=== PATIENT | female | born 1965 | race Caucasian/White ===

== ENCOUNTER → 2019-07-09 | Outpatient (CLI) | payer BC ==
[2015-01-26 11:50] VITALS: BP 112/71
[~2019-07-09] MED LIST: BLAC160C PO; CONTRAST GIVEN MC PRN; CRAN500C6 PO; DIAZ10TA PO; ESTR1TAB15 PO; MELA3TAB4 PO; ZOLP10TA PO; [UNRECOGNIZED DRUG - OTHER] PO
[2019-07-09] MEDS: IOHEXOL 300 MG/ML 75 ML VIAL. IV ONE (13:24)
--- NOTE | 2019-07-09 13:32 | RAD ---
EXAM: Head CT without and with contrast. HISTORY: Severe headache. Visual disturbance. TECHNIQUE: Computed tomographic images of the head were obtained without and with contrast. *One or more of the following individualized dose reduction techniques were utilized for this examination: 1. Automated exposure control. 2. Adjustment of the mA and/or kV according to patient size. 3. Use of iterative reconstruction technique. COMPARISON: 01/26/2015. FINDINGS: There is no acute or subacute extra-axial or intraparenchymal hemorrhage. There is no mass effect or midline shift. There is no hydrocephalus. There is mild developmental asymmetry in the size of the left greater than right frontal horn. The dumont-white matter differentiation pattern is intact. No enhancing lesion is seen. The visualized portions of the orbits, paranasal sinuses and mastoid air cells are unremarkable. No suspicious calvarial lesion is seen. IMPRESSION: No acute intracranial findings. Electronically signed by: Anitha Portillo MD (07/09/2019 1:30 PM) [id number]
[2019-07-09 14:03] LABS: CALCIUM 8.8 mg/dL (8.5-10.1); CREATININE 0.7 mg/dL (0.6-1.0); GFR 87.9; POTASSIUM 3.5 mmol/L (3.5-5.1)
[2019-07-09 14:07] LABS: BASO % 1 % (0-3); EOS # 0.1 x10^3/uL (0.0-0.7); EOS % 2 % (0-3); HEMOGLOBIN 13.8 g/dL (12.0-15.5); LYMPH # 2.4 x10^3/uL (1.0-4.8); LYMPH % 45 % (24-48); MEAN CORPUSCULAR HEMOGLOBIN 29 pg (25-35); MEAN CORPUSCULAR HGB CONC 33 g/dL (31-37); MEAN CORPUSCULAR VOLUME 89 fL (79-100); MONO # 0.3 x10^3/uL (0.0-1.1); MONO % 6 % (0-9); NEUT # 2.5 x10^3uL (1.8-7.7); NEUT % 47 % (31-73); PLATELET COUNT 229 x10^3/uL (140-400); RED BLOOD COUNT 4.71 x10^6/uL (3.50-5.40); RED CELL DISTRIBUTION WIDTH 13.6 % (11.5-14.5); WHITE BLOOD COUNT 5.4 x10^3/uL (4.0-11.0)
[2019-07-09 15:14] LABS: SEDIMENTATION RATE 4 (0-25)
== END | disposition home or self-care (01) ==
LOC: CT 12:30
PROVIDERS: ATTEND Family Medicine
DX: R51 Headache (principal); H53.8 Other visual disturbances; R11.0 Nausea
CPT/HCPCS: 36415; 70470; 80048; 85025; 85651; Q9967

== ENCOUNTER 2019-11-15 13:43 | Inpatient (IN) | payer BC ==
[~2019-11-15] VITALS: Ht 162.6 cm; Wt 81.8 kg
[~2019-11-15 13:43] MED LIST changes: -CONTRAST GIVEN MC PRN
--- NOTE | 2019-11-15 14:22 | PHYS DOC ---
Past History Past Medical History: Cancer (BREAST), Migraines Past Surgical History: Hysterectomy, Other Alcohol Use: Occasionally Drug Use: None Adult General Chief Complaint Chief Complaint: COUGH HPI HPI Patient is a 54-year-old female with history of breast cancer that presents for pneumonia. Patient was seen by her PCP's office for 48 hours of dyspnea, nonproductive cough, wheezing, and generalized malaise. Nothing known makes better, deep inhalations make worse. Patient had limited work-up obtained in outpatient setting that consisted of an unremarkable EKG and chest x-ray that was concerning for possible pneumonia. Patient was also swabbed for COVID-19 given her symptomology. Decision was made to administer x2 albuterOL nebulizer treatments, IM Solu-Medrol, and IM Rocephin with instructions to seek further evaluation at our ER with consideration for admission. At time of presentation, patient reports no significant relief from preceding medical intervention. She denies fever and history of present illness consistent with that that was reported to our ER from patient's PCPs office. Patient works for a local [employer], denies any known COVID-19 exposure but does admit to being out in the public often to grocery shop etc. Review of Systems Review of Systems Fourteen body systems of review of systems have been reviewed. See HPI for pertinent positives and negative responses, other kirby all other systems are neg ative, non-pertinent or non-contributory Allergies Allergies Allergies Coded Allergies Type Severity Reaction Last Updated Verified latex Allergy Unknown 11/15/19 Yes nitrofurantoin Allergy Unknown 01/26/15 No Physical Exam Physical Exam Constitutional: Well developed, well nourished, mild distress, mild respiratory distress with accessory muscle movement, non-toxic appearance. HENT: Normocephalic, atraumatic, bilateral external ears normal, oropharynx dry, no oral exudates, nose normal. Eyes: PERRLA, EOMI, conjunctiva normal, no discharge. Neck: Normal range of motion, no tenderness, supple, no stridor. Cardiovascular: Heart rate regular, sinus rhythm, no murmurs rubs or gallops Lungs & Thorax: Coarse breath signs bilaterally, bilateral wheezes appreciated most prominent on active expiratory effort, no focal consolidations, rales appreciated Abdomen: Bowel sounds normal, soft, no tenderness, no masses, no pulsatile masses. Nonsurgical abdomen, no peritoneal signs Skin: Warm, dry, no erythema, no rash. Back: No tenderness, no CVA tenderness. Extremities: No tenderness, no cyanosis, no clubbing, ROM intact, no edema. Neurologic: Alert and oriented X 3, grossly normal motor & sensory function, no focal deficits noted. Psychologic: Affect normal, judgement normal, agitated mood Current Patient Data Vital Signs Vital Signs Date Time Temp Pulse Resp B/P (MAP) Pulse Ox O2 Delivery O2 Flow Rate FiO2 11/15/19 21:19 98.1 92 20 141/72 (95) 94 Room Air 11/15/19 20:26 Room Air 11/15/19 17:06 86 20 130/79 (96) 97 Room Air 11/15/19 16:36 75 20 119/69 (86) 95 Room Air 11/15/19 16:02 86 20 154/68 (96) 98 Room Air 11/15/19 15:09 88 20 132/77 (95) 97 Room Air 11/15/19 13:55 98.1 87 20 153/97 (115) 98 Room Air Lab Results Laboratory Tests Test 11/15/19 14:46 White Blood Count 6.9 x10^3/uL Red Blood Count 4.69 x10^6/uL Hemoglobin 14.0 g/dL Hematocrit 42.3 % Mean Corpuscular Volume 90 fL Mean Corpuscular Hemoglobin 30 pg Mean Corpuscular Hemoglobin Concent 33 g/dL Red Cell Distribution Width 13.7 % Platelet Count 223 x10^3/uL Neutrophils (%) (Auto) 74 % Lymphocytes (%) (Auto) 21 % Monocytes (%) (Auto) 4 % Eosinophils (%) (Auto) 1 % Basophils (%) (Auto) 1 % Neutrophils # (Auto) 5.1 x10^3uL Lymphocytes # (Auto) 1.4 x10^3/uL Monocytes # (Auto) 0.3 x10^3/uL Eosinophils # (Auto) 0.1 x10^3/uL Basophils # (Auto) 0.0 x10^3/uL Sodium Level 140 mmol/L Potassium Level 3.6 mmol/L Chloride Level 103 mmol/L Carbon Dioxide Level 26 mmol/L Anion Gap 11 Blood Urea Nitrogen 19 mg/dL Creatinine 0.8 mg/dL Estimated GFR (Cockcroft-Gault) 75.3 BUN/Creatinine Ratio 24 Glucose Level 98 mg/dL Calcium Level 9.1 mg/dL Magnesium Level 2.4 mg/dL Total Bilirubin 0.2 mg/dL Aspartate Amino Transf (AST/SGOT) 32 U/L Alanine Aminotransferase (ALT/SGPT) 31 U/L Alkaline Phosphatase 93 U/L Troponin I Quantitative < 0.017 ng/mL Total Protein 7.2 g/dL Albumin 3.7 g/dL Albumin/Globulin Ratio 1.1 Current Medications Medications (Trade) Dose Ordered Sig/Uriah Route PRN Reason Start Time Stop Time Status Last Admin Dose Admin Acetaminophen (Tylenol) 650 mg PRN Q4HRS PRN PO FEVER > 100.3'F 11/15/19 14:30 11/16/19 14:29 Nitroglycerin (Nitrostat) 0.4 mg PRN Q5MIN PRN SL CHEST PAIN 11/15/19 14:30 11/16/19 14:29 Albuterol/ Ipratropium (Duoneb) 3 ml RTQID NEB 11/15/19 16:00 11/15/19 15:13 DC Albuterol/ Ipratropium (Combivent Respimat 20-100 Mcg) 1 puff RTQID INH 11/15/19 16:00 11/15/19 22:52 EKG EKG EKG ordered and interpreted by myself at 1511 hrs. as normal sinus rhythm at 81 bpm, unremarkable intervals, no axis deviation, no acute ischemic findings, no STEMI Radiology/Procedures Radiology/Procedures [] Course & Med Decision Making Course & Med Decision Making Airway patent, breathing mildly labored without any emergent findings, vital signs unremarkable Comprehensive history and physical exam obtained, consistent with report given by PCPs office Pertinent laboratory/imaging/other diagnostic studies ordered and reviewed with patient Discussed most likely diagnoses of pneumonia and/or COVID-19 infection versus less likely diagnoses such as ACS or PE and patient who is Wells negative. PCP (Dr. Mayfield) called, case discussed, joint decision to admit for further medical management for pneumonia present on outpatient chest x-ray in patient who is a person under investigation for COVID-19 I discussed this with patient he was agreeable to admission for further diagnostic work-up and medical intervention as indicated All questions and concerns addressed prior to ER departure to [facility] for admission Jaimee Disclaimer Dragon Disclaimer This electronic medical record was generated, in whole or in part, using a voice recognition dictation system. The HEART Score for CP Pts HEART Score for Chest Pain: HEART Score for Chest Pain Response (Comments) Value History Slighlty/Non-Suspicious 0 ECG Normal 0 Age >45 - < 65 1 Risk Factors 1 or 2 Risk Factors 1 Troponin < Normal Limit 0 Total 2 Risk Factors: Risk Factors: DM, Current or recent (<one month) smoker, HTN, HLP, family history of CAD, obesity. Risk Scores: Score 0 - 3: 2.5% MACE over next 6 weeks - Discharge Home Score 4 - 6: 20.3% MACE over next 6 weeks - Admit for Clinical Observation Score 7 - 10: 72.7% MACE over next 6 weeks - Early Invasive Strategies Departure Departure: Impression: Primary Impression: Pneumonia Additional Impressions: Person under investigation for COVID-19 History of breast cancer Disposition: 01 HOME/RESIDENCE PRIOR TO ADM Admitting Physician: Alex Mayfield Condition: STABLE Referrals: ALEX MAYFIELD MD (PCP) Justification of Admission: Justification of Admission: Justification of Admission Dx: Yes (Patient with history of breast cancer, COVID-like symptoms, suspect pneumonia based on outpatient work-up consisting of chest x-ray, cannot exclude MD) Problem Qualifiers TERENCE FRIEDMAN DO Nov 15, 2019 14:22
[2019-11-15] MEDS ORDERED: ACETAMINOPHEN 325 MG TABLET PO PRN (14:30)
[2019-11-15] MEDS ORDERED: NITROGLYCERIN SUBLINGUAL 0.4 MG BOTTLE OF 25. SL PRN (14:30)
[2019-11-15 15:22] LABS: BASO % 1 % (0-3); EOS # 0.1 x10^3/uL (0.0-0.7); EOS % 1 % (0-3); HEMATOCRIT 42.3 % (36.0-47.0); LYMPH # 1.4 x10^3/uL (1.0-4.8); LYMPH % 21 % (24-48); MEAN CORPUSCULAR HEMOGLOBIN 30 pg (25-35); MEAN CORPUSCULAR HGB CONC 33 g/dL (31-37); MEAN CORPUSCULAR VOLUME 90 fL (79-100); MONO # 0.3 x10^3/uL (0.0-1.1); MONO % 4 % (0-9); NEUT # 5.1 x10^3uL (1.8-7.7); NEUT % 74 % (31-73); PLATELET COUNT 223 x10^3/uL (140-400); RED BLOOD COUNT 4.69 x10^6/uL (3.50-5.40); RED CELL DISTRIBUTION WIDTH 13.7 % (11.5-14.5); WHITE BLOOD COUNT 6.9 x10^3/uL (4.0-11.0)
[2019-11-15 15:36] LABS: CALCIUM 9.1 mg/dL (8.5-10.1); CREATININE 0.8 mg/dL (0.6-1.0); GFR 75.3; POTASSIUM 3.6 mmol/L (3.5-5.1)
[2019-11-15 15:41] LABS: ALBUMIN 3.7 g/dL (3.4-5.0); ALBUMIN/GLOBULIN RATIO 1.1 (1.0-1.7); MAGNESIUM 2.4 mg/dL (1.8-2.4); TOTAL BILIRUBIN 0.2 mg/dL (0.2-1.0); TOTAL PROTEIN 7.2 g/dL (6.4-8.2)
--- NOTE | 2019-11-15 15:53 | EKG ---
[address] [address] Test Date: 2019-11-15 Test Time: 15:01:56 Pat Name: GABO GREGORY Department: Room: Gender: F [employer]: : [id number] Requested By: TERENCE FRIEDMAN Order Number: [id number] Reading MD: Measurements Intervals [place] Rate: 81 P: 28 ID: [id number] QRS: 10 QRSD: 78 T: 36 QT: 398 QTc: 468 Interpretive Statements SINUS RHYTHM NORMAL ECG RI6.02 No previous ECG available for comparison
[2019-11-15] MEDS ORDERED: IPRATRPIUM/ALBUTEROL 0.5/2.5MG 3 ML NEBU. NEB SCH (16:00)
[2019-11-15] MEDS: IPRATROPIUM/ALBUTEROL 20/100mcg/INH INHALER. INH SCH ×2 (16:00→22:52)
[2019-11-15] MEDS ORDERED: SUMA100T4 PO (20:36)
[2019-11-15] MEDS ORDERED: AZIT250T6 PO (20:36)
[2019-11-15] MEDS ORDERED: GABA-586 PO (20:36)
[2019-11-15] MEDS ORDERED: VENL150C6 PO (20:36)
[2019-11-15 21:19] VITALS: BP 141/72
[2019-11-15] MEDS ORDERED: diazePAM 5 MG TABLET. PO PRN (22:00)
[2019-11-15] MEDS: MELATONIN 3 MG TABLET PO SCH (22:00)
[2019-11-15] MEDS ORDERED: TAMO20TA PO (22:30)
[2019-11-15] MEDS: methylPREDNISolone SOD SUCC PF 40 MG/ML VIAL. IV SCH (22:51)
[2019-11-15] MEDS: ZOLPIDEM 5 MG TABLET. PO PRN (22:51)
[2019-11-15] MEDS: VENLAFAXINE 50 MG TABLET. PO SCH (22:51)
[2019-11-15] MEDS: BENZONATATE 100 MG CAPSULE. PO SCH (22:51)
[2019-11-15] MEDS: GABAPENTIN 300 MG CAPSULE. PO SCH (22:51)
[2019-11-16] MEDS: methylPREDNISolone SOD SUCC PF 40 MG/ML VIAL. IV SCH ×3 (06:23→20:37)
[2019-11-16 06:39] VITALS: BP 112/74
[2019-11-16] MEDS ORDERED: IPRATRPIUM/ALBUTEROL 0.5/2.5MG 3 ML NEBU. NEB SCH (08:00)
[2019-11-16] MEDS: AZITHROMYCIN 250 MG TABLET. PO SCH (08:18)
[2019-11-16] MEDS: LACTOBACILLUS RHAMNOSUS GG 1 CAPSULE. PO SCH ×2 (08:18→20:38)
[2019-11-16] MEDS: VENLAFAXINE 50 MG TABLET. PO SCH ×3 (08:18→20:38)
[2019-11-16] MEDS: BENZONATATE 100 MG CAPSULE. PO SCH ×3 (08:18→20:38)
[2019-11-16] MEDS: GABAPENTIN 300 MG CAPSULE. PO SCH ×3 (08:18→20:38)
[2019-11-16] MEDS: IPRATROPIUM/ALBUTEROL 20/100mcg/INH INHALER. INH SCH ×4 (08:32→20:39)
[2019-11-16] MEDS ORDERED: VENLAFAXINE HCL PO SCH (09:00)
[2019-11-16 10:47] VITALS: BP 124/78
[2019-11-16] MEDS: BUTALB/APAP/CAFEIN 50/325/40MG TABLET. PO PRN (13:21)
--- NOTE | 2019-11-16 16:03 | PN ---
DATE: 11/16/2019 SUBJECTIVE: This is a pleasant 54-year-old female who had exacerbation of asthma, what appeared to be she has a history of this; however, she had a chronic cough. She was seen in the office. Chest x-ray was unremarkable. The patient continued to have problems despite breathing treatments and some IV Solu-Medrol. As a result of this, the patient was brought over here to the Emergency Room where she was seen. She still had problems breathing. She was admitted for further evaluation and she was still very dyspneic, not moving air very well using accessory muscles to breathe and respiratory rate was over 20. She was afebrile, but she had this chronic cough as well and so a COVID-19 was also being performed on her and the results of that are still pending. The patient otherwise seems to be resting fairly comfortably this morning. OBJECTIVE: VITAL SIGNS: Blood pressure 132/77, respiratory rate 20, pulse 88, afebrile. GENERAL: The patient is alert and oriented. Speech is fluent, spontaneous, appropriate. LUNGS: Diminished throughout, poor movement of air if any. CARDIOVASCULAR: Regular sinus rhythm. ABDOMEN: Soft, nontender. EXTREMITIES: Normal. NEUROLOGICALLY: Alert and oriented. Speech is fluent, spontaneous, appropriate. Labs are basically within range. D-dimer is still pending. We will continue on her Zithromax, IV Solu-Medrol. She is using Combivent inhaler and make further evaluation on her as indicated. IMPRESSION: Acute exacerbation of asthma, acute bronchospasm. Continue to monitor her accordingly. ALEX RHOADES MD DR: BAHMAN/genie JOB#: [id number] / [id number]
[2019-11-16 16:20] VITALS: BP 116/68
[2019-11-16 19:43] VITALS: BP 125/73
[2019-11-16] MEDS: ZOLPIDEM 5 MG TABLET. PO PRN (20:38)
[2019-11-16] MEDS: MELATONIN 3 MG TABLET PO SCH (20:39)
[2019-11-16] MEDS: SUMAtriptan SUCCINATE 50 MG TABLET PO PRN (20:49)
[2019-11-16 22:19] VITALS: BP 136/86
[2019-11-16] MEDS: TAMOXIFEN 10 MG TABLET PO SCH (22:24)
[2019-11-17 05:14] VITALS: BP 145/82
[2019-11-17] MEDS: methylPREDNISolone SOD SUCC PF 40 MG/ML VIAL. IV SCH ×3 (05:20→20:34)
[2019-11-17] MEDS: LACTOBACILLUS RHAMNOSUS GG 1 CAPSULE. PO SCH ×2 (07:58→20:33)
[2019-11-17] MEDS: AZITHROMYCIN 250 MG TABLET. PO SCH (07:58)
[2019-11-17] MEDS: VENLAFAXINE 50 MG TABLET. PO SCH ×3 (07:59→21:23)
[2019-11-17] MEDS: BENZONATATE 100 MG CAPSULE. PO SCH ×3 (07:59→20:34)
[2019-11-17] MEDS: IPRATROPIUM/ALBUTEROL 20/100mcg/INH INHALER. INH SCH (07:59)
[2019-11-17] MEDS: GABAPENTIN 300 MG CAPSULE. PO SCH ×3 (08:00→20:33)
[2019-11-17 10:49] VITALS: BP 129/85
[2019-11-17] MEDS: guaiFENesin/CODEINE 100mg/10mg 5 ML LIQUID PO PRN ×2 (11:59→21:23)
[2019-11-17] MEDS: BUTALB/APAP/CAFEIN 50/325/40MG TABLET. PO PRN ×2 (11:59→18:01)
[2019-11-17] MEDS: IPRATRPIUM/ALBUTEROL 0.5/2.5MG 3 ML NEBU. NEB SCH ×3 (13:01→20:13)
[2019-11-17 15:29] VITALS: BP 117/71
--- NOTE | 2019-11-17 17:19 | PN ---
DATE: SUBJECTIVE: The patient came in with acute exacerbation and status asthmaticus, severe bronchospasm. The patient has been on COVID-19 floor, which was negative. The patient continues to be monitored carefully. We will move to the non-COVID area, give her breathing treatments instead of just the oral MDI. OBJECTIVE: LUNGS: Otherwise, diminished primarily in the right upper lobe and right lower lobe areas. Poor movement of air throughout her lungs. CARDIOVASCULAR: Regular sinus rhythm. ABDOMEN: Soft, nontender. VITAL SIGNS: Pulse had gone up to 104, blood pressure 136/86, respiratory rate 18, pulse 74. GENERAL: The patient is alert and oriented x 3. IMPRESSION: Therefore, situation of status asthmaticus, bronchospasm, migraine headaches. PLAN: Continue to monitor the patient accordingly and we will monitor her, start to give her aggressive breathing treatments and go from there, and continue on her Solu-Medrol, she is on IV Solu-Medrol. ALEX RHOADES MD DR: BAHMAN/genie JOB#: [id number] / [id number]
[2019-11-17 19:02] VITALS: BP 150/87
[2019-11-17] MEDS: SUMAtriptan SUCCINATE 50 MG TABLET PO PRN (20:28)
[2019-11-17] MEDS: MELATONIN 3 MG TABLET PO SCH (20:32)
[2019-11-17] MEDS: ZOLPIDEM 5 MG TABLET. PO PRN (20:32)
[2019-11-17] MEDS: TAMOXIFEN 10 MG TABLET PO SCH (20:32)
[2019-11-17 23:00] VITALS: BP 134/87
[2019-11-18] MEDS: IPRATRPIUM/ALBUTEROL 0.5/2.5MG 3 ML NEBU. NEB SCH (05:29)
[2019-11-18 06:06] VITALS: BP 115/63
[2019-11-18] MEDS: methylPREDNISolone SOD SUCC PF 40 MG/ML VIAL. IV SCH (06:10)
[2019-11-18] MEDS: LACTOBACILLUS RHAMNOSUS GG 1 CAPSULE. PO SCH (08:04)
[2019-11-18] MEDS: AZITHROMYCIN 250 MG TABLET. PO SCH (08:04)
[2019-11-18] MEDS: BENZONATATE 100 MG CAPSULE. PO SCH (08:05)
[2019-11-18] MEDS: VENLAFAXINE 50 MG TABLET. PO SCH (08:05)
[2019-11-18] MEDS: GABAPENTIN 300 MG CAPSULE. PO SCH (08:12)
[2019-11-18] MEDS ORDERED: BENZ100C PO (09:50)
[2019-11-18] MEDS: guaiFENesin/CODEINE 100mg/10mg 5 ML LIQUID PO PRN (09:58)
== END 2019-11-18 10:20 | disposition home or self-care (01) | DRG 178 ==
LOC: ER 13:43 → 1 SOUTH 16:15
PROVIDERS: ADMIT Family Medicine; ATTEND Family Medicine
DX: J69.0 Pneumonitis due to inhalation of food and vomit (principal); J45.901 Unspecified asthma with (acute) exacerbation; Z85.3 Personal history of malignant neoplasm of breast; G43.909 Migraine, unspecified, not intractable, without status migrainosus; Z20.828 Contact with and (suspected) exposure to other viral communicable diseases; Z90.710 Acquired absence of both cervix and uterus; Z91.040 Latex allergy status; I10 Essential (primary) hypertension; E11.9 Type 2 diabetes mellitus without complications; E78.5 Hyperlipidemia, unspecified; E66.9 Obesity, unspecified; Z68.31 Body mass index [BMI] 31.0-31.9, adult
CPT/HCPCS: 36415; 80053; 83735; 84484; 85025; 85379; 93005; 94640; J0456; J2920; 99285-25; U0003-CS

== ENCOUNTER → 2019-11-24 | Outpatient (CLI) | payer BC ==
[2019-11-18 06:06] VITALS: BP 115/63
[~2019-11-24] MED LIST changes: +AZIT250T6 PO; +BENZ100C PO; +GABA-586 PO; +IOHEXOL 350 MG/ML 100 ML VIAL. IV ONE; +SUMA100T4 PO; +TAMO20TA PO; +VENL150C6 PO
--- NOTE | 2019-11-24 10:23 | RAD ---
CT CHEST WO CONTRAST INDICATION: COUGH X 1 WEEK . COMPARISON STUDY: None. TECHNIQUE: Unenhanced axial images were obtained through the lungs and upper abdomen. Coronal and sagittal multiplanar reconstructions were also obtained. PQRS compliance statement: One or more of the following individualized dose reduction techniques were utilized for this examination: 1. Automated exposure control 2. Adjustment of the mA and/or kV according to patient size 3. Use of iterative reconstruction technique FINDINGS: Lungs and Airways: No pulmonary mass or consolidation. Normal central airways. Pleura: The pleural spaces are normal. Heart and Mediastinum: The visualized thyroid gland is normal in size and attenuation. No axillary or supraclavicular lymphadenopathy. No mediastinal, hilar or retrocrural lymphadenopathy. The heart and pericardium are within normal limits. The great vessels of the thorax are normal. Small fat-containing hiatal hernia. Abdomen: The visualized abdominal organs demonstrate no abnormality. Bones and Soft Tissues: The visualized skeletal structures and soft tissues of the chest wall are within normal limits. IMPRESSION: No pulmonary mass or consolidation. Electronically signed by: Darwin Shaw MD (11/24/2019 10:20 AM) [facility]
[2019-11-24 10:26] LABS: BASO # 0.1 x10^3/uL (0.0-0.2); BASO % 0 % (0-3); EOS % 0 % (0-3); HEMATOCRIT 44.8 % (36.0-47.0); HEMOGLOBIN 14.6 g/dL (12.0-15.5); LYMPH # 3.9 x10^3/uL (1.0-4.8); LYMPH % 24 % (24-48); MEAN CORPUSCULAR HEMOGLOBIN 29 pg (25-35); MEAN CORPUSCULAR HGB CONC 33 g/dL (31-37); MEAN CORPUSCULAR VOLUME 90 fL (79-100); MONO # 0.9 x10^3/uL (0.0-1.1); MONO % 6 % (0-9); NEUT # 11.3 x10^3uL (1.8-7.7); NEUT % 70 % (31-73); PLATELET COUNT 286 x10^3/uL (140-400); RED BLOOD COUNT 4.99 x10^6/uL (3.50-5.40); RED CELL DISTRIBUTION WIDTH 13.7 % (11.5-14.5); WHITE BLOOD COUNT 16.2 x10^3/uL (4.0-11.0)
[2019-11-24 11:06] LABS: % ATYL 1 % (0-0); % BANDS 1 % (0-9); % EOS 2 % (0-5); % LYMPHS 22 % (24-48); % METAS 1 % (0-0); % MONOS 7 % (0-10); % SEGS 66 % (35-66)
[2019-11-24 11:07] LABS: PLT ESTIMATE ADEQUATE (ADEQUATE); TOXIC GRANULATION PRESENT
== END | disposition home or self-care (01) ==
LOC: CT 08:09
PROVIDERS: ATTEND Family Medicine
DX: R05 Cough (principal); R06.02 Shortness of breath
CPT/HCPCS: 71250; 82785; 84145; 85007; 85025; 86003